=== PATIENT | male | born 1950 | race Caucasian/White ===

== ENCOUNTER → 2016-11-20 | Outpatient (CLI) | payer BC, MEDICARE, OTHER ==
[~2016-11-20] MED LIST: ASPIRIN 32325 MG/TA1 PO; ASPIRIN 81M81 MG/TA2 PO; CENTRUM SAW PA160 MG PO; CIALIS20 MG PO; COZAAR 50MG50 MG/TAB PO; DUO-KAPS1 CAP PO; FLOMAX 0.40.4 MG/CAP PO; GLUCOPHAGE500 MG/TAB PO; LANTUS100 U/ML SC; LIPITOR 10MG10 MG PO; LORCET; NEXIUM 20MG20 MG PO; NOVOLOG 100U100 U/M1 SC; OMNICEF 300MG300 MG PO; PERCOCET 325 MG1 TA3 PO; PRILOSEC 20MG20 MG PO; WELLBUTRIN XL300 M1 PO; ZITHROMAX 250M250 MG PO; ZOFRAN 4MG T4 MG/TAB PO
== END ==
LOC: COL.RAD 11-15 07:30
DX: Z13.6 Encounter for screening for cardiovascular disorders (principal)

== ENCOUNTER → 2017-05-08 | Outpatient (CLI) | payer BC, MEDICARE, OTHER | LOC: COL.RAD 12:29 | DX: N50.89 Other specified disorders of the male genital organs (principal) ==

== ENCOUNTER 2017-09-22 12:32 | Inpatient (IN) | payer BC, MEDICARE, OTHER ==
[~2017-09-22] VITALS: Ht 172.7 cm; Wt 87.9 kg
[~2017-09-22 12:32] MED LIST changes: -COZAAR 50MG50 MG/TAB PO; +COZAAR100 MG PO
[2017-09-22 12:53] LABS: HEMATOCRIT 44.2 % (42.0-52.0); HEMOGLOBIN 14.3 g/dl (13.5-18.0); MEAN CELL VOLUME 89 fl (80.0-100.0); MEAN CORPUSCULAR HEMOGLOBIN 29 pg (27.0-31.0); MEAN CORPUSCULAR HGB CONC 32 g/dl (33.0-37.0); MEAN PLATELET VOLUME 10.5 fl (7.4-10.4); PLATELET COUNT 261 K/mm3 (130-400); RED BLOOD COUNT 4.96 M/mm3 (4.20-5.60); WHITE BLOOD COUNT 18.6 K/mm3 (4.8-10.8)
[2017-09-22 12:57] LABS: ADD PATHOLOGY DIFF REVIEW NO
[2017-09-22] MEDS ORDERED: LANTUS100 U/ML SQ (12:57)
[2017-09-22] MEDS ORDERED: NOVLOG SQ (13:00)
[2017-09-22] MEDS ORDERED: PRILOSEC 20MG20 MG PO (13:01)
[2017-09-22 13:03] LABS: ARTERIAL BLD GAS O2 SATURATION 97.5 % (92-100); ARTERIAL BLD GAS TCO2 CT 4.6; ARTERIAL BLOOD GAS BASE EXCESS -23.7 (-2-2); ARTERIAL BLOOD GAS HCO3 4.2 meq/L (22-26); OXYHEMOGLOBIN 96.1 %
[2017-09-22 13:05] LABS: ARTERIAL BLOOD GAS pH 7.08 (7.35-7.45)
[2017-09-22 13:06] LABS: ALLEN TEST YES; ALLENS TEST RESULT PASS; ARTERIAL BLOOD GAS PO2 127.6 mmHg (80-100); ATS? YES
[2017-09-22 13:10] LABS: ADJUSTED CALCIUM 8.9 mg/dL (8.4-10.2); ALANINE AMINOTRANSFERASE 34 U/L (21-72); ALKALINE PHOSPHATASE 88 U/L (50-136); BILIRUBIN,TOTAL 1.1 mg/dL (0.0-1.0); BLOOD UREA NITROGEN 42 mg/dL (9-20); CALCIUM 8.9 mg/dL (8.4-10.2); CHLORIDE 91 mmol/L (98-107); CREATININE, serum 2.14 mg/dL (0.66-1.25); LIPASE 79 U/L (23-300); SODIUM 128 mmol/L (137-145); TOTAL PROTEIN 6.3 gm/dL (6.4-8.2)
[2017-09-22 13:14] LABS: COLLECTION METHOD CLEAN CATCH
[2017-09-22 13:20] LABS: BAND 5 % (0-10); CARBON DIOXIDE < 5 mmol/L (22-30); LYMPHOCYTE 5 % (20.0-51.0); NEUTROPHILS 86 % (42.0-75.2); PLATELET ESTIMATE NORMAL (NORMAL); POTASSIUM 7.1 mmol/L (3.4-5.0); TOTAL CELLS COUNTED 100
[2017-09-22 13:22] LABS: TROPONIN-I < 0.012 ng/mL (0.000-0.034)
[2017-09-22 13:28] LABS: PROTHROMBIN TIME 10.9 SECONDS (9.7-12.8)
[2017-09-22 13:33] LABS: HYALINE CAST >12 /lpf; MUCOUS Present /lpf; PH 5 (5-8); SQUAMOUS EPITHELIAL None Seen /hpf; URINE APPEARANCE Clear; URINE BACTERIA None Seen /hpf; URINE BILIRUBIN Negative (NEGATIVE); URINE BLOOD 2+ (NEGATIVE); URINE COLOR Yellow; URINE GLUCOSE 3+ (NEGATIVE); URINE KETONE 2+ (NEGATIVE); URINE LEUKOCYTE ESTERASE Negative (NEGATIVE); URINE PROTEIN(semi-quant) Negative (NEGATIVE); URINE RBC 0-2 /hpf; URINE UROBILINOGEN Negative (NEGATIVE); URINE WBC 0-2 /hpf
[2017-09-22 14:26] LABS: GLUCOSE 722 mg/dL (74-106)
[2017-09-22 16:16] LABS: BLOOD UREA NITROGEN 39 mg/dL (9-20); CALCIUM 7.9 mg/dL (8.4-10.2); CHLORIDE 102 mmol/L (98-107); CREATININE, serum 1.67 mg/dL (0.66-1.25); POTASSIUM 5.3 mmol/L (3.4-5.0); SODIUM 132 mmol/L (137-145)
[2017-09-22 16:17] LABS: GLUCOSE 577 mg/dL (74-106)
[2017-09-22 16:18] LABS: CARBON DIOXIDE < 5 mmol/L (22-30)
[2017-09-22 19:38] LABS: ARTERIAL BLD GAS O2 SATURATION 97.6 % (92-100); ARTERIAL BLD GAS TCO2 CT 10.3; ARTERIAL BLOOD GAS BASE EXCESS -19.6 (-2-2); ARTERIAL BLOOD GAS HCO3 9.3 meq/L (22-26); OXYHEMOGLOBIN 96.7 %
[2017-09-22 19:39] LABS: ALLEN TEST YES; ALLENS TEST RESULT PASS; ARTERIAL BLOOD GAS pH 7.08 (7.35-7.45); ATS? YES
[2017-09-22 19:45] VITALS: O2SAT 99
[2017-09-22 20:00] VITALS: BP 117/55; PULSE 94; TEMP 97.3
[2017-09-22 20:48] LABS: CALCIUM 7.3 mg/dL (8.4-10.2); CREATININE, serum 1.53 mg/dL (0.66-1.25); MAGNESIUM 2.1 mg/dL (1.6-2.3); PHOSPHOROUS 3.4 mg/dL (2.5-4.5); POTASSIUM 5.4 mmol/L (3.4-5.0)
[2017-09-22 21:05] VITALS: O2SAT 100
[2017-09-22 21:16] LABS: ARTERIAL BLOOD GAS pH 7.16 (7.35-7.45)
[2017-09-22 21:17] LABS: ARTERIAL BLD GAS O2 SATURATION 98.3 % (92-100); ARTERIAL BLOOD GAS HCO3 11.6 meq/L (22-26); ARTERIAL BLOOD GAS PO2 149.7 mmHg (80-100)
[2017-09-22 21:18] LABS: ALLEN TEST NO; ARTERIAL BLD GAS TCO2 CT 12.6; ATS? YES
[2017-09-22 22:42] VITALS: O2SAT 99
[2017-09-22 23:00] VITALS: BP 103/47; PULSE 72; TEMP 98.2
[2017-09-22 23:20] LABS: ARTERIAL BLD GAS O2 SATURATION 98.3 % (92-100); ARTERIAL BLD GAS TCO2 CT 16.7; ARTERIAL BLOOD GAS BASE EXCESS -10.8 (-2-2); ARTERIAL BLOOD GAS HCO3 15.6 meq/L (22-26); ARTERIAL BLOOD GAS pH 7.25 (7.35-7.45); OXYHEMOGLOBIN 97.3 %
[2017-09-22 23:21] LABS: ALLEN TEST NO; ARTERIAL BLOOD GAS PO2 148.5 mmHg (80-100); ATS? YES
[2017-09-22 23:22] LABS: VENOUS BLOOD GAS BE -11.1 (-4-4); VENOUS BLOOD GAS SAO2 83.4 % (60-80)
[2017-09-22 23:23] LABS: VENOUS BLOOD GAS SITE CENTRAL LINE
[2017-09-23] VITALS (446 sets, daily range): BP systolic 95–167; BP diastolic 42–60; PULSE 73–82; TEMP 97.6–99.1; O2SAT 93–100
[2017-09-23 00:45] LABS: CALCIUM 7.1 mg/dL (8.4-10.2); CREATININE, serum 1.61 mg/dL (0.66-1.25); POTASSIUM 4.6 mmol/L (3.4-5.0)
[2017-09-23 02:28] LABS: CREATININE, serum 1.62 mg/dL (0.66-1.25); POTASSIUM 4.3 mmol/L (3.4-5.0)
[2017-09-23 04:41] LABS: CREATININE, serum 1.65 mg/dL (0.66-1.25); POTASSIUM 3.8 mmol/L (3.4-5.0)
[2017-09-23 05:20] LABS: ARTERIAL BLD GAS O2 SATURATION 98.4 % (92-100); ARTERIAL BLOOD GAS BASE EXCESS -6.5 (-2-2); ARTERIAL BLOOD GAS HCO3 19.7 meq/L (22-26); ARTERIAL BLOOD GAS pH 7.29 (7.35-7.45); OXYHEMOGLOBIN 97.4 %
[2017-09-23 05:21] LABS: ALLEN TEST NO; ARTERIAL BLOOD GAS PO2 146.4 mmHg (80-100); ATS? YES
[2017-09-23 05:22] LABS: VENOUS BLOOD GAS BE -9.1 (-4-4); VENOUS BLOOD GAS SAO2 86.5 % (60-80)
[2017-09-23 05:23] LABS: VENOUS BLOOD GAS SITE CENTRAL LINE
[2017-09-23 06:14] LABS: BASO % 0.1 % (0.0-2.0); EOS % 0.1 % (0-4.0); GRAN # 7.2 (1.4-6.5); GRAN % 81.2 % (42.2-75.2); LYMPH # 0.8 (1.2-3.4); LYMPH % 8.4 % (20.0-51.0); MEAN CELL VOLUME 85 fl (80.0-100.0); MEAN CORPUSCULAR HGB CONC 34 g/dl (33.0-37.0); MEAN PLATELET VOLUME 9.8 fl (7.4-10.4); MONO # 0.9 (0.1-0.6); MONO % 9.8 % (1.7-9.3); PLATELET COUNT 186 K/mm3 (130-400); RED BLOOD COUNT 3.95 M/mm3 (4.20-5.60); WHITE BLOOD COUNT 8.9 K/mm3 (4.8-10.8)
[2017-09-23 06:20] LABS: HEMATOCRIT 33.7 % (42.0-52.0); HEMOGLOBIN 11.3 g/dl (13.5-18.0); MEAN CORPUSCULAR HEMOGLOBIN 29 pg (27.0-31.0)
[2017-09-23 06:24] LABS: PROTHROMBIN TIME 11.2 SECONDS (9.7-12.8)
[2017-09-23 06:30] LABS: ADJUSTED CALCIUM 8.4 mg/dL (8.4-10.2); ALBUMIN 2.5 gm/dL (3.5-5.0); BILIRUBIN,TOTAL 0.3 mg/dL (0.0-1.0); CALCIUM 7.2 mg/dL (8.4-10.2); CREATININE, serum 1.68 mg/dL (0.66-1.25); MAGNESIUM 1.8 mg/dL (1.6-2.3); PHOSPHOROUS 2.3 mg/dL (2.5-4.5); POTASSIUM 3.6 mmol/L (3.4-5.0); TOTAL PROTEIN 4.5 gm/dL (6.4-8.2)
[2017-09-23 09:10] LABS: CALCIUM 7.3 mg/dL (8.4-10.2); CREATININE, serum 1.52 mg/dL (0.66-1.25); POTASSIUM 3.4 mmol/L (3.4-5.0)
[2017-09-23 10:12] LABS: CALCIUM 7.3 mg/dL (8.4-10.2); CREATININE, serum 1.46 mg/dL (0.66-1.25); POTASSIUM 3.5 mmol/L (3.4-5.0)
[2017-09-23 12:28] LABS: CALCIUM 7.1 mg/dL (8.4-10.2); CREATININE, serum 1.33 mg/dL (0.66-1.25); POTASSIUM 3.5 mmol/L (3.4-5.0)
[2017-09-23 14:21] LABS: CALCIUM 7.1 mg/dL (8.4-10.2); CREATININE, serum 1.34 mg/dL (0.66-1.25); POTASSIUM 3.7 mmol/L (3.4-5.0)
[2017-09-23 15:45] LABS: ALLEN TEST NO; ARTERIAL BLD GAS O2 SATURATION 97.3 % (92-100); ARTERIAL BLD GAS TCO2 CT 19.1; ARTERIAL BLOOD GAS BASE EXCESS -7.6 (-2-2); ARTERIAL BLOOD GAS PHT 7.31 C (7.35-7.45); ARTERIAL BLOOD GAS PO2 104.7 mmHg (80-100); ARTERIAL BLOOD GAS PO2T 104.7 (80-100); ARTERIAL BLOOD GAS pH 7.31 (7.35-7.45); ATS? NO; OXYHEMOGLOBIN 96.2 %
[2017-09-23 16:45] LABS: CREATININE, serum 1.26 mg/dL (0.66-1.25); POTASSIUM 4.1 mmol/L (3.4-5.0)
[2017-09-23 18:46] LABS: CREATININE, serum 1.25 mg/dL (0.66-1.25)
[2017-09-23 21:26] LABS: ALLEN TEST NO; ARTERIAL BLD GAS O2 SATURATION 96.3 % (92-100); ARTERIAL BLD GAS TCO2 CT 16.1; ARTERIAL BLOOD GAS BASE EXCESS -9.3 (-2-2); ARTERIAL BLOOD GAS HCO3 15.2 meq/L (22-26); ARTERIAL BLOOD GAS PO2 82.8 mmHg (80-100); ARTERIAL BLOOD GAS pH 7.35 (7.35-7.45); ATS? YES; OXYHEMOGLOBIN 95.8 %
[2017-09-24] VITALS (734 sets, daily range): BP systolic 121–160; BP diastolic 56–76; PULSE 80–92; TEMP 97.8–99.4; O2SAT 90–100
[2017-09-24 05:15] LABS: ARTERIAL BLD GAS O2 SATURATION 95.6 % (92-100); ARTERIAL BLOOD GAS BASE EXCESS -8.1 (-2-2); ARTERIAL BLOOD GAS HCO3 16.1 meq/L (22-26); ARTERIAL BLOOD GAS PO2 78.3 mmHg (80-100); ARTERIAL BLOOD GAS pH 7.37 (7.35-7.45); OXYHEMOGLOBIN 94.6 %
[2017-09-24 05:17] LABS: ALLEN TEST NO; ATS? YES
[2017-09-24 05:37] LABS: EOS % 0.3 % (0-4.0); GRAN # 5.6 (1.4-6.5); LYMPH % 14.1 % (20.0-51.0); MEAN CELL VOLUME 85 fl (80.0-100.0); MEAN CORPUSCULAR HGB CONC 34 g/dl (33.0-37.0); MEAN PLATELET VOLUME 9.5 fl (7.4-10.4); MONO # 0.7 (0.1-0.6); MONO % 9.3 % (1.7-9.3); PLATELET COUNT 158 K/mm3 (130-400); RED BLOOD COUNT 3.54 M/mm3 (4.20-5.60); WHITE BLOOD COUNT 7.4 K/mm3 (4.8-10.8)
[2017-09-24 05:48] LABS: HEMATOCRIT 30.2 % (42.0-52.0); HEMOGLOBIN 10.2 g/dl (13.5-18.0); MEAN CORPUSCULAR HEMOGLOBIN 29 pg (27.0-31.0)
[2017-09-24 05:52] LABS: ADJUSTED CALCIUM 8.4 mg/dL (8.4-10.2); ALBUMIN 2.4 gm/dL (3.5-5.0); BILIRUBIN,TOTAL 0.5 mg/dL (0.0-1.0); CALCIUM 7.1 mg/dL (8.4-10.2); CREATININE, serum 1.03 mg/dL (0.66-1.25); MAGNESIUM 1.7 mg/dL (1.6-2.3); PHOSPHOROUS 1.5 mg/dL (2.5-4.5); POTASSIUM 3.8 mmol/L (3.4-5.0); TOTAL PROTEIN 4.4 gm/dL (6.4-8.2)
[2017-09-25 04:16] VITALS: BP 151/66; PULSE 82; TEMP 97.8
[2017-09-25 07:05] VITALS: BP 151/66; PULSE 84; TEMP 98.6
[2017-09-25 08:30] LABS: PHOSPHOROUS 2.3 mg/dL (2.5-4.5)
[2017-09-25 08:30] LABS: CALCIUM 7.9 mg/dL (8.4-10.2); CREATININE, serum 0.94 mg/dL (0.66-1.25); POTASSIUM 3.4 mmol/L (3.4-5.0)
[2017-09-25 08:34] LABS: BASO % 0.3 % (0.0-2.0); EOS # 0.1 (0.0-0.7); EOS % 2.1 % (0-4.0); GRAN # 4.6 (1.4-6.5); GRAN % 74.8 % (42.2-75.2); LYMPH % 15.7 % (20.0-51.0); MEAN CELL VOLUME 84 fl (80.0-100.0); MEAN CORPUSCULAR HGB CONC 34 g/dl (33.0-37.0); MEAN PLATELET VOLUME 9.6 fl (7.4-10.4); MONO # 0.4 (0.1-0.6); MONO % 6.8 % (1.7-9.3); PLATELET COUNT 191 K/mm3 (130-400); RED BLOOD COUNT 3.72 M/mm3 (4.20-5.60); WHITE BLOOD COUNT 6.2 K/mm3 (4.8-10.8)
[2017-09-25 08:36] LABS: HEMATOCRIT 31.3 % (42.0-52.0); HEMOGLOBIN 10.6 g/dl (13.5-18.0); MEAN CORPUSCULAR HEMOGLOBIN 28 pg (27.0-31.0)
[2017-09-25 14:13] VITALS: BP 141/68; PULSE 78; TEMP 98.9
[2017-09-25 17:04] VITALS: BP 154/73; PULSE 75; TEMP 98.4
[2017-09-26] VITALS: BP 162/70; PULSE 87; TEMP 97.9
[2017-09-26 04:00] VITALS: BP 164/74; PULSE 81; TEMP 97.5
[2017-09-26 08:15] VITALS: BP 146/68; PULSE 78; TEMP 98.6
[2017-09-26 08:35] LABS: CALCIUM 8.2 mg/dL (8.4-10.2); CREATININE, serum 0.94 mg/dL (0.66-1.25); PHOSPHOROUS 2.9 mg/dL (2.5-4.5); POTASSIUM 3.6 mmol/L (3.4-5.0)
[2017-09-26 10:58] VITALS: BP 143/76; PULSE 76; TEMP 97.2
[2017-09-26 13:07] VITALS: BP 140/71; PULSE 77; TEMP 98.8
[2017-09-26] MEDS ORDERED: FLAGYL500 MG PO (15:52)
[2017-09-26] MEDS ORDERED: CIPRO 500MG TA500 MG PO (15:52)
[2017-09-26] MEDS ORDERED: COLACE 100100 MG/CAP PO (15:54)
[2017-09-26] MEDS ORDERED: PERCOCET 325 MG1 TA2 PO (15:56)
[2017-09-26] MEDS ORDERED: ZOFRAN 4MG T4 MG/TAB PO (16:10)
== END 2017-09-26 17:10 | disposition home or self-care (01) | DRG 414 ==
LOC: COL.ER 12:32 → ICU 14:33 → SURG 09-24 19:59
PROVIDERS: Emergency Medicine; Family Medicine; Internal Medicine; Physician Assistant; Surgery
PROC: 02HV33Z Insertion of Infusion Device into Superior Vena Cava, Percutaneous Approach (ICD-10-PCS; 2017-09-22)
PROC: 0FT40ZZ Resection of Gallbladder, Open Approach (ICD-10-PCS; principal; 2017-09-22 17:46)
DX: K80.00 Calculus of gallbladder with acute cholecystitis without obstruction (principal); E11.10 Type 2 diabetes mellitus with ketoacidosis without coma; N17.9 Acute kidney failure, unspecified; E87.1 Hypo-osmolality and hyponatremia; E87.5 Hyperkalemia; I10 Essential (primary) hypertension; Z79.4 Long term (current) use of insulin; Z87.891 Personal history of nicotine dependence; D64.9 Anemia, unspecified; Z91.14 Patient's other noncompliance with medication regimen
CPT/HCPCS: 99223-AI; 99232-AI; 99233-AI; 99239; A4315; A9284; J0610; J0744; J1644; J1815; J2250; J2270; J2370; J2405; J2704; J3010; J3475; J3480; J7030; J7042

== ENCOUNTER 2018-02-14 08:26 | Day surgery (SDC) | payer BC, MEDICARE, OTHER ==
[~2018-02-14] VITALS: Ht 172.7 cm; Wt 80.9 kg
[~2018-02-14 08:26] MED LIST changes: +CIPRO 500MG TA500 MG PO; +COLACE 100100 MG/CAP PO; +FLAGYL500 MG PO; +LANTUS100 U/ML SQ; +NOVLOG SQ; +PERCOCET 325 MG1 TA2 PO
[2018-02-14 08:48] VITALS: BP 123/79; PULSE 73; TEMP 97.9
[2018-02-14 12:11] VITALS: BP 123/72; PULSE 64
== END 2018-02-14 10:42 | disposition home or self-care (01) ==
LOC: SDCO 08:26
DX: Z12.11 Encounter for screening for malignant neoplasm of colon (principal); K21.9 Gastro-esophageal reflux disease without esophagitis; E11.9 Type 2 diabetes mellitus without complications; I10 Essential (primary) hypertension; E78.00 Pure hypercholesterolemia, unspecified; Z88.0 Allergy status to penicillin; Z90.49 Acquired absence of other specified parts of digestive tract; Z79.4 Long term (current) use of insulin; Z87.891 Personal history of nicotine dependence
CPT/HCPCS: OP; J2704; J7030

== ENCOUNTER 2019-02-17 05:32 | Day surgery (SDC) | payer MEDICARE, OTHER ==
[~2019-02-17] VITALS: Ht 167.6 cm; Wt 88.6 kg
[2019-02-17 06:05] VITALS: BP 135/68; PULSE 69; TEMP 98.4
[2019-02-17] MEDS ORDERED: ASPIRIN E.C. 8181 MG PO (06:19)
[2019-02-17] MEDS ORDERED: ALLERGY RELIEF PO (06:20)
--- NOTE | 2019-02-17 06:21 | NUR ---
TO RM AT 0538- CALL LIGHT IN REACH AND GRANDDAUGHTER AT BEDSIDE.
[2019-02-17 08:42] VITALS: BP 129/66; PULSE 62; TEMP 97.3
--- NOTE | 2019-02-17 08:42 | NUR ---
TO RM 8 PER CART FROM [facility]. ALERT ORIENTED X3, TALKING TO STAFF AND . DENIES PAIN OR DISCOMFORT. DENIES NAUSEA VOMITING CARLIN SET CLEAN DRY INTACT. RECEIVED WATER
[2019-02-17] MEDS ORDERED: PERCOCET 325 MG1 TA2 PO (08:44)
[2019-02-17] MEDS ORDERED: COLACE 100100 MG/CAP PO (08:44)
[2019-02-17] MEDS ORDERED: MOTRIN 600600 MG/TAB PO (08:44)
[2019-02-17 09:00] VITALS: BP 115/58; PULSE 60
--- NOTE | 2019-02-17 09:00 | NUR ---
MORE AWAKE AND JOKING AND LAUGHING. RECEIVED COFFEE AND MUFFIN
[2019-02-17 09:15] VITALS: BP 109/54; PULSE 51
--- NOTE | 2019-02-17 09:15 | NUR ---
ATE 100% AND TOLERATED WELL STILL DRINKING COFFEE
[2019-02-17 09:30] VITALS: BP 122/65; PULSE 57
[2019-02-17 09:45] VITALS: BP 121/53; PULSE 54
--- NOTE | 2019-02-17 09:45 | NUR ---
UP AMBULATED TO BATHROOM WITH STAND BY ASSIST. VOIDED AND TOLERATED WELL.
--- NOTE | 2019-02-17 09:50 | NUR ---
RECEIVED DISCHARGE INSTRUCTIONS AND VERBALIZED UNDERSTANDING DISCONTINUED IV AND INT- CATHETER INTACT.
--- NOTE | 2019-02-17 10:05 | NUR ---
DISCHARGED PER WC BY NURSING STAFF TO PRIVATE CAR IN CARE OF DANK.
== END 2019-02-17 10:19 | disposition home or self-care (01) ==
LOC: SDCO 05:32
DX: K42.9 Umbilical hernia without obstruction or gangrene (principal); E11.9 Type 2 diabetes mellitus without complications; Z79.4 Long term (current) use of insulin; I10 Essential (primary) hypertension; E78.5 Hyperlipidemia, unspecified; K21.9 Gastro-esophageal reflux disease without esophagitis; Z90.49 Acquired absence of other specified parts of digestive tract; Z79.899 Other long term (current) drug therapy; Z80.1 Family history of malignant neoplasm of trachea, bronchus and lung; F17.220 Nicotine dependence, chewing tobacco, uncomplicated
CPT/HCPCS: C1781; J0690; J2704; J3010; J7030

== ENCOUNTER 2022-12-10 08:53 | Day surgery (SDC) | payer MEDICARE, OTHER ==
[~2022-12-10] VITALS: Ht 167.6 cm; Wt 89.5 kg
[2022-12-10] VITALS (11 sets, daily range): BP systolic 116–154; BP diastolic 62–92; PULSE 55–68; TEMP 97.7–98.3
[~2022-12-10 08:53] MED LIST changes: +ALLERGY RELIEF PO; +ASPIRIN E.C. 8181 MG PO; +MOTRIN 600600 MG/TAB PO
[2022-12-10] MEDS ORDERED: LUTEIN 15 MG-0.1 SGL PO (09:38)
[2022-12-10 10:11] LABS: HEMOGLOBIN 14.3 g/dl (13.5-18.0); MEAN CELL VOLUME 82 fl (80.0-100.0); MEAN CORPUSCULAR HEMOGLOBIN 29 pg (27-31); MEAN CORPUSCULAR HGB CONC 35 g/dl (33.0-37.0); MEAN PLATELET VOLUME 9.6 fl (7.4-10.4); PLATELET COUNT 246 K/mm3 (130-400); REDCELL DISTRIBUTION WIDTH-CV 13.1 % (11.5-14.5)
[2022-12-10 10:22] LABS: CALCIUM 9.2 mg/dL (8.4-10.2); CREATININE, serum 1.29 mg/dL (0.72-1.25); POTASSIUM 4.5 mmol/L (3.5-4.5); PROTHROMBIN TIME 10.9 SECONDS (9.7-12.8)
[2022-12-10 10:25] LABS: PARTIAL THROMBOPLASTIN TIME 29.7 SECONDS (26.0-37.0)
[2022-12-10] MEDS ORDERED: PREVAGEN PO (10:35)
--- NOTE | 2022-12-10 11:05 | NUR ---
SEE MERGE FOR PROCEDURE, EQUIPMENT, MEDICATIONS, VITAL SIGNS, AND OTHER PERTINENT PROCEDURAL INFORMATION
--- NOTE | 2022-12-10 11:55 | NUR ---
RECIEVED PT FROM [place] IN CAR SEAL[employer], VITALS NORMAL, DISCUSSED RESTRICTIONS FOR TIME BEING AND WHAT TO NOTIFY US FOR. PT ORDERED LUNCH. SON AT BEDSIDE
[2022-12-10] MEDS ORDERED: TOPROL XL 25MG25 MG PO (14:55)
--- NOTE | 2022-12-10 15:22 | NUR ---
PT IV DISCONTINUED, TR BAND REMOVED, SITE CLEAN DRY AND INTACT. NO BLEEDING. SMALL PRESSURE DRESSING APPLIED AND SENT TR BAND HOME WITH PT. DISCUSSED D/C INSTRUCTIONS. PT AND SON STATE UNDERSTANDING. PT ROLLED DOWN TO PATIENT ENTRANCE
== END 2022-12-10 15:35 | disposition home or self-care (01) ==
LOC: COL.CAR 08:53
PROVIDERS: Internal Medicine Cardiovascular Disease
DX: I25.10 Atherosclerotic heart disease of native coronary artery without angina pectoris (principal); I10 Essential (primary) hypertension; I05.9 Rheumatic mitral valve disease, unspecified; Z79.82 Long term (current) use of aspirin; Z87.891 Personal history of nicotine dependence
CPT/HCPCS: J1644; J2250; J3010